=== PATIENT | female | born 2000 | race American Indian/Alaskan Native ===

== ENCOUNTER 2019-03-30 11:54 | Emergency (ER) | payer BC ==
--- NOTE | 2019-03-30 12:04 | Event Note ---
ED Screening Note Date of service: 03/30/19 Time: 12:02 ED Screening Note: 18 y/o female comes in for KANG that started this morning. Has numbness in right are. Has a pmh of htn and is not taking any medications. This initial assessment/diagnostic orders/clinical plan/treatment(s) is/are subject to change based on patients health status, clinical progression and re- assessment by fellow clinical providers in the ED. Further treatment and workup at subsequent clinical providers discretion. Patient/guardian urged not to elope from the ED as their condition may be serious if not clinically assessed and managed. Initial orders include:
[2019-03-30 12:05] VITALS: BP 156/98
== END 2019-03-30 14:05 | disposition left against medical advice (07) ==
LOC: ED 11:54
DX: R51 Headache (principal); Z53.21 Procedure and treatment not carried out due to patient leaving prior to being seen by health care provider

== ENCOUNTER 2019-11-06 12:07 | Emergency (ER) | payer BC ==
[2019-11-06 12:13] VITALS: BP 157/81
== END 2019-11-06 20:00 | disposition left against medical advice (07) ==
LOC: ED 12:07
DX: H57.11 Ocular pain, right eye (principal); Z53.21 Procedure and treatment not carried out due to patient leaving prior to being seen by health care provider